=== PATIENT | female | born 1985 | race Caucasian/White ===

== ENCOUNTER 2018-03-13 19:33 | Inpatient (IN) | payer OTHER ==
[~2018-03-13] VITALS: Ht 167.6 cm; Wt 65.8 kg
--- NOTE | 2018-03-13 20:15 | NUR ---
PRE-ADMISSION NOTE VS BP-125/82 T- 97.5 P- 89 R-18 SpO2 AT 98% IN RA. PATIENT ALERT AND ORIENTED . AMBULATORY AND HAS STEADY GAIT. SPEECH CLEAR AND ABLE TO ANSWER QUESTIONS APPROPRIATELY. PATIENT HAS NO ALLERGY TO MEDICATION OR FOOD. NO HISTORY OF SEIZURE. PATIENT IS HERE FOR ALCOHOL AND CLONAZEPAM. WILL CONTINUE ADMISSION ON 3RD FLOOR.
[2018-03-13] MEDS ORDERED: CLONIDINE HCL 0.1 MG TABLET PO PRN (20:30)
[2018-03-13] MEDS ORDERED: ONDANSETRON ODT 4 MG TAB.RAPDIS SL PRN (20:30)
[2018-03-13] MEDS ORDERED: MAG HYDROX/AL HYDROX/SIMETH 30 ML LIQUID UDC PO PRN (20:30)
[2018-03-13] MEDS ORDERED: LORAZEPAM 1 MG TABLET PO PRN ×2 (20:30)
[2018-03-13] MEDS ORDERED: LORAZEPAM 2 MG/1 ML VIAL IM PRN (20:30)
[2018-03-13] MEDS ORDERED: ONDANSETRON 4 MG/2 ML VIAL IM PRN (20:30)
[2018-03-13] MEDS ORDERED: MIRALAX 17 GM POWD.PACK PO PRN (20:30)
[2018-03-13] MEDS ORDERED: IBUPROFEN 400 MG TABLET PO PRN (20:30)
[2018-03-13] MEDS ORDERED: MAGNESIUM HYDROXIDE 30 ML LIQUID UDC PO PRN (20:30)
[2018-03-13] MEDS ORDERED: THIAMINE HCL 200 MG/2 ML VIAL IM ONE (20:30)
[2018-03-13] MEDS ORDERED: LOPERAMIDE HCL 2 MG CAPSULE PO PRN ×2 (20:30)
[2018-03-13 20:42] LABS: *URINE HCG, QUAL NEGATIVE (NEGATIVE)
[2018-03-13 21:00] LABS: *AMPHETAMINE, URINE NEGATIVE (NEGATIVE); *BARBITURATE, URINE NEGATIVE (NEGATIVE); *COCCAINE, URINE NEGATIVE (NEGATIVE); *OPIATE, URINE NEGATIVE (NEGATIVE)
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
[2018-03-13 21:09] LABS: BASOPHILS % (AUTO) 0.4 % (0.0-2.0); EOSINOPHILS # (AUTO) 0.1 K/uL (0.0-0.7); EOSINOPHILS % (AUTO) 0.8 % (0.0-7.0); HEMATOCRIT 38.7 % (31.2-41.9); LYMPHOCYTES # (AUTO) 2.2 K/uL (20.0-40.0); LYMPHOCYTES % (AUTO) 32.4 % (20.5-51.5); MEAN CORPUSCULAR HEMOGLOBIN 29.8 uug (24.7-32.8); MEAN CORPUSCULAR HGB CONC 34 g/dL (32.3-35.6); MEAN CORPUSCULAR VOLUME 88.7 fL (75.5-95.3); MONOCYTES # (AUTO) 0.7 K/uL (2.0-10.0); MONOCYTES % (AUTO) 9.6 % (0.0-11.0); NEUTROPHILS # (AUTO) 3.9 K/uL (1.8-8.9); NEUTROPHILS % (AUTO) 56.8 % (38.5-71.5); PLATELET COUNT (AUTO) 201 K/uL (179-408); RED BLOOD CELL COUNT(AUTO) 4.36 MIL/uL (3.63-4.92); WHITE BLOOD COUNT (AUTO) 6.9 K/uL (3.8-11.8)
[2018-03-13 21:27] LABS: *CANNABINOID, URINE NEGATIVE (NEGATIVE); *PHENCYCLIDINE SCREEN,URINE NEGATIVE (NEGATIVE)
[2018-03-13] MEDS ORDERED: VENL150C58 PO (21:48)
[2018-03-13] MEDS ORDERED: LORAZEPAM 1 MG TABLET PO SCH (22:00)
[2018-03-13 22:04] LABS: ETHANOL < 3 MG/DL (0-0)
[2018-03-13] MEDS: diphenhydrAMINE 50 MG CAPSULE PO PRN (22:36)
--- NOTE | 2018-03-13 22:36 | NUR ---
PRN BENADRYL ADMINISTRATION PATIENT REQUESTS FOR SLEEP AID. WILL MONITOR FOR EFFECTIVENESS
[2018-03-13 22:58] LABS: ALANINE AMINOTRANSFERASE 26 U/L (14-59); ALKALINE PHOSPHATASE 106 U/L (50-136); AMYLASE 75 U/L (25-115); ASPARTATE AMINOTRANSFERASE 20 U/L (15-37); BILIRUBIN,TOTAL 0.2 mg/dL (0.2-1.0); CARBON DIOXIDE 24 mmol/L (21-32); CHLORIDE 106 mmol/L (98-107); CREATININE 0.8 mg/dL (0.6-1.3); GLUCOSE 109 mg/dL (74-106); POTASSIUM 4.7 mmol/L (3.5-5.1); TOTAL PROTEIN, SERUM 7.5 g/dL (6.4-8.2)
[2018-03-13 23:07] LABS: UREA NITROGEN, BLOOD 14 mg/dL (7-18)
--- NOTE | 2018-03-13 23:36 | NUR ---
DAMIAN ALEX RE-ASSESSMENT PATIENT ASLEEP AT THIS TIME. RESPIRATION EVEN AND UNLABORED. SAFETY MEASURES IN PLACE. CALL LIGHT IN REACH. WILL CONTINUE TO MONITOR.
[2018-03-14] VITALS: BP 123/67
--- NOTE | 2018-03-14 | NUR ---
CIWA DEFERRED PATIENT SLEEPING. RESPIRATION EVEN AND UNLABORED. SAFETY MEASURES IN PLACE. CALL LIGHT IN REACH. WILL CONTINUE TO MONITOR.
--- NOTE | 2018-03-14 04:00 | NUR ---
CIWA DEFERRED PATIENT SLEEPING. RESPIRATION EVEN AND UNLABORED. SAFETY MEASURES IN PLACE. CALL LIGHT IN REACH. WILL CONTINUE TO MONITOR.
--- NOTE | 2018-03-14 07:12 | NUR ---
END OF SHIFT NOTE PATIENT SLEPT 7 HOURS. FLUID INTAKE OF 1,591 ML. VOIDED X 3. NO BM. MONITORED PATIENT THROUGHOUT SHIFT. PATIENT COMPLIANT WITH MEDICATION, TOLERATED WELL AND NO ADVERSE REACTION. PATIENT WAS GIVEN ONE TIME ATIVAN ORDERED. VITAMIN B1 IM GIVEN ON LEFT DELTOID. PATIENT REQUESTED FOR SLEEP AID, PRN BENADRYL GIVEN. LAST CIWA 7. ON FALL/SEIZURE PRECAUTION. SAFETY MEASURES IN PLACE. CALL LIGHT IN REACH. WILL CONTINUE TO MONITOR.
--- NOTE | 2018-03-14 07:15 | NUR ---
Start of Shift Music Therapist received report on 32 year old female admitted to [facility] on 03/13/18 for medical management of ETOH and Benzodiazepine withdrawals. Pt endorses NKA, full code and regular diet. Denies any medical history with a PPH of anxiety and depression. No known seizure history. Currently started on Ativan taper, tolerating well, last CIWA 7, per NOC report. Pt was administered PRN Benadryl(insomnia) on NOC, per report. Music Therapist encounters pt in pts room, pt resting with eyes closed, rise and fall of chest noted, with even and unlabored respirations. Bed in low position, wheels locked with side rails up x2. Will continue to monitor, support and encourage according to plan of care.
[2018-03-14 08:12] VITALS: BP 115/80
[2018-03-14] MEDS ORDERED: TUBERCULIN,PURIF.PROT.DERIV. 5 TU/0.1 ML TEST ID ONE (09:00)
[2018-03-14] MEDS: MULTIVITAMINS,THERAPEUTIC TABLET PO SCH (09:26)
[2018-03-14] MEDS: FOLIC ACID 1 MG TABLET PO SCH (09:26)
[2018-03-14] MEDS: LORAZEPAM 1 MG TABLET PO SCH ×3 (09:26→20:24)
[2018-03-14] MEDS: THIAMINE HCL 100 MG TABLET PO SCH (09:26)
[2018-03-14] MEDS: VENLAFAXINE XR 150 MG CAP.SR.24H PO SCH (12:10)
[2018-03-14 12:44] VITALS: BP 111/81
[2018-03-14 17:03] VITALS: BP 116/78
--- NOTE | 2018-03-14 19:05 | NUR ---
End of Shift Artist'S Model provided report on 32 year old female admitted to [facility] on 03/13/18 for medical management of ETOH and Benzodiazepine withdrawals. Pt endorses NKA, full code and regular diet. Denies any medical history with a PPH of anxiety and depression. No known seizure history. Currently started on Ativan taper, tolerating well, last CIWA 6. No PRN medication administered. Pt is A/O x4 and makes her needs known. Clear of thought and speech with linear thought process. Flat affect with an anxious mood. Calm and cooperative. Pt participated in groups and is medication compliant. Bed in low position, wheels locked with side rails up x2.
[2018-03-14 20:00] VITALS: BP 120/78
--- NOTE | 2018-03-14 20:00 | NUR ---
START OF SHIFT NOTE RECEIVED REPORT FROM DAY SHIFT NURSE. PATIENT IS A 32 YEAR OLD FEMALE ADMITTED FOR ETOH/BENZO WITHDRAWAL. PATIENT STARTED ON ATIVAN TAPER. PATIENT COMPLIANT WITH MEDICATION AND TREATMENT PLAN. PATIENT DID NOT REQUIRE PRN MEDICATION. LAST CIWA 6. RECEIVED PATIENT IN THE ROOM. ALERT AND ORIENTED X 4. RESPIRATION EVEN AND UNLABORED. PATIENT PRESENTED WITH FLAT AFFECT, SAD, DEPRESSED, ANXIOUS, RESTLESS LEGS, SWEATING, MILD HEADACHE, VERY MILD PINS AND NEEDLES SENSATIONS. SAFETY MEASURES IN PLACE. CALL LIGHT IN REACH. WILL CONTINUE TO MONITOR
[2018-03-14] MEDS: diphenhydrAMINE 50 MG CAPSULE PO PRN (20:24)
--- NOTE | 2018-03-14 20:24 | NUR ---
PRN BENADRYL ADMINISTRATION PATIENT REQUESTS FOR SLEEP AID. WILL MONITOR FOR EFFECTIVENESS
--- NOTE | 2018-03-14 23:00 | NUR ---
PRN BENADRYL RE-ASSESSMENT PATIENT SLEEPING. RESPIRATION EVEN AND UNLABORED. SAFETY MEASURES IN PLACE. CALL LIGHT IN REACH WILL CONTINUE TO MONITOR
[2018-03-15] VITALS: BP 102/68
--- NOTE | 2018-03-15 | NUR ---
CIWA DEFERRED PATIENT SLEEPING. RESPIRATION EVEN AND UNLABORED. SAFETY MEASURES IN PLACE. VS REFUSED. CALL LIGHT IN REACH WILL CONTINUE TO MONITOR
[2018-03-15 04:00] VITALS: BP 98/55
--- NOTE | 2018-03-15 04:00 | NUR ---
CIWA DEFERRED PATIENT SLEEPING. RESPIRATION EVEN AND UNLABORED. SAFETY MEASURES IN PLACE. VS REFUSED. CALL LIGHT IN REACH WILL CONTINUE TO MONITOR
--- NOTE | 2018-03-15 07:10 | NUR ---
END OF SHIFT NOTE PATIENT SLEPT 7 HOURS. FLUID INTAKE M1,500 ML. VOIDED X 2. NO BM. MONITORED PATIENT THROUGHOUT SHIFT. SCHEDULED MEDICATION AND ATIVAN TAPER GIVEN ORDERED, TOLERATED WELL AND NO ADVERSE REACTION. PATIENT WAS SAD, DEPRESSED, ANXIOUS,C/O RESTLESS LEGS, SWEATING, MILD HEADACHE, VERY MILD PINS AND NEEDLES SENSATIONS BEGINNING OF SHIFT. PATIENT COMPLIANT WITH MEDICATION AND TEATMENT PLAN. PATIENT WAS GIVEN PRN BENADRYL FOR SLEEP. SAFETY MEASURES IN PLACE. CALL LIGHT IN REACH. WILL CONTINUE TO MONITOR . LAST CIWA 7.
--- NOTE | 2018-03-15 07:15 | NUR ---
Start of Shift Strap Machine Operator Automatic received report on 32 year old female admitted to [facility] on 03/13/18 for medical management of ETOH and Benzodiazepine withdrawals. Pt endorses NKA, full code and regular diet. Denies any medical history with a PPH of anxiety and depression. No known seizure history. Currently started on Ativan taper, tolerating well, last CIWA 7, per NOC report. Pt was administered PRN Benadryl(insomnia) on NOC, per report. Strap Machine Operator Automatic encounters pt in pts room, pt resting. Pt is A/O x4 and makes needs known. Calm and cooperative. Pt is anxious about making phone call to and FMLA paperwork. Bed in low position, wheels locked with side rails up x2. Will continue to monitor, support and encourage according to plan of care.
[2018-03-15 08:42] VITALS: BP 129/49
[2018-03-15] MEDS: MULTIVITAMINS,THERAPEUTIC TABLET PO SCH (08:48)
[2018-03-15] MEDS: THIAMINE HCL 100 MG TABLET PO SCH (08:48)
[2018-03-15] MEDS: VENLAFAXINE XR 150 MG CAP.SR.24H PO SCH (08:49)
[2018-03-15] MEDS: LORAZEPAM 1 MG TABLET PO SCH ×4 (08:49→20:18)
[2018-03-15] MEDS: FOLIC ACID 1 MG TABLET PO SCH (08:49)
--- NOTE | 2018-03-15 10:52 | NUR ---
Client was prompted to attend groups daily at 11:00am and at 3:30pm. Client stated she would attend the groups and is planning on attending the 11:00 am group today.
[2018-03-15 12:48] VITALS: BP 124/78
[2018-03-15 13:09] LABS: HEPATITIS B SURFACE AG Negative (Negative)
[2018-03-15 16:30] VITALS: BP 115/73
--- NOTE | 2018-03-15 18:29 | NUR ---
Motrin 400mg po prn given for "menstrual cramps."
--- NOTE | 2018-03-15 19:12 | NUR ---
End of Shift Veterinary Bacteriologist provided report on 32 year old female admitted to [facility] on 03/13/18 for medical management of ETOH and Benzodiazepine withdrawals. Pt endorses NKA, full code and regular diet. Denies any medical history with a PPH of anxiety and depression. No known seizure history. Currently started on Ativan taper, tolerating well, last CIWA 7, per NOC report. Pt was administered PRN Benadryl(insomnia) on NOC, per report. Pt has been isolative to self and withdrawn to room. Pt is guarded with staff, attends groups and participates. A/O x4 and makes needs known. Clear of thought and speech with a linear thought process. Bed in low position, wheels locked with side rails up x2.
--- NOTE | 2018-03-15 19:12 | NUR ---
START OF SHIFT NOTE: Patient is a 32 year old female continues 4 day Ativan Taper for Benzodiazepines/Clonazepam and Alcohol/Red and White Wine withdrawal. The patient reports NKA and Regular Diet, is on Full Code, is on Fall an seizures Precautions. She is denies withdrawal-Induced Seizures History. Upon endorsement, patient is in his room, lying in the bed, and watching TV. Patient is alert and oriented x4. Patient appears sad, worry with flat effect, and c/o increasing anxiety, agitation, nervousness, abdominal cramps, tremors, sweating, generalized body aches, myalgia, fatigue, and restlessness. Last CIWA is 5 per day shift nurse. Patient received PRN Motrin 400 mg PO for "menstrual cramps" at 1828 per day shift nurse report. Patient remains compliant with treatment, medications, and diet regime. Encouraged to fluid intake as tolerated. Encourage to attended groups activities. All needs met. Safety measures in the place: Call light within reach, bed in the lowest position and locked, padded rails up x2. Patient endorsed to day shift nurse.
[2018-03-15 20:00] VITALS: BP 103/66
[2018-03-15] MEDS: diphenhydrAMINE 50 MG CAPSULE PO PRN (20:32)
[2018-03-15] MEDS: ACETAMINOPHEN 325 MG TABLET PO PRN (20:32)
--- NOTE | 2018-03-15 20:32 | NUR ---
PRN BENADRYL 50 MG 1 CAPSULE PO AND PRN TYLENOL 650 MG PO ADMINISTRATION. Patient c/o insomnia and "menstrual cramps - 8/10". PRN Benadryl 50 mg PO administrated for insomnia, and PRN Tylenol 650 mg PO administrated for "menstrual cramps - 8/10" with full glass of water as ordered. All needs met. Safe and calm environment with minimized noises was provided. Safety measures on place. Call light within reach, bed in lowest position locked, padded rails up bilaterally. Will continue to monitor closely.
--- NOTE | 2018-03-15 21:32 | NUR ---
RE-ASSESSMENT Patient is sleeping. RR 17. Respirations even and unlabored. PRN Benadryl 50 mg PO administrated for insomnia, and PRN Tylenol 650 mg PO administrated for "menstrual cramps - 06/30" were effective. All needs met. Safe and calm environment with minimized noises was provided. Safety measures on place. Call light within reach, bed in lowest position locked, padded rails up bilaterally. Will continue to monitor closely.
[2018-03-15] MEDS: HYDROXYZINE PAMOATE 25 MG CAPSULE PO PRN (22:07)
--- NOTE | 2018-03-15 22:07 | NUR ---
PRN VISTARIL 25MG 1 CAP PO ADMINISTRATION Patient c/o increased anxiety, and asked aid. PRN Vistaril 25 mg for anxiety administrated with full glass of water as ordered. Patient tolerated well. All needs met. Safe and calm environment with minimized noises was provided. Safety measures on place. Call light within reach, bed locked in lowest position, padded rails up bilaterally. Will continue to monitor closely.
--- NOTE | 2018-03-15 23:07 | NUR ---
RE-ASSESSMENT Patient is sleeping. Respirations even and unlabored. RR 16. PRN Vistaril 25 mg administrated for anxiety was effective. All needs met. Safe and calm environment with minimized noises was provided. Safety measures on place. Call light within reach, bed locked in lowest position, padded rails up bilaterally. Will continue to monitor closely.
[2018-03-16] VITALS: BP 106/62
[2018-03-16 04:00] VITALS: BP 102/59
--- NOTE | 2018-03-16 07:09 | NUR ---
END OF SHIFT NOTE: Presented patient is a 32 year old female continues 4 day Ativan for Benzodiazepines/Clonazepam and Alcohol/Red and White Wine withdrawal. Patient is alert and oriented x4. Patient is fully ambulatory with steady gate. Patient appears anxious, agitated, nervous, easy overwhelmed, worry, and sad. Patient c/o "sleep difficulty, and irritability". Patient noted disheveled, unkempt, and uncombed. Educated in safety and hygiene care. Encouraged to independently perform hygiene care. Patient verbalized understanding. CIWA=10 at 2000, CIWA= 6 at 0000. Latest CIWA= 8 at 0400. Patient presented with withdrawal symptoms such as anxiety, moderately fidgety and restless, agitation, c/o nervousness, abdominal cramps, sweating, tremors, body aches, and restlessness. PRN Benadryl 50 mg PO administrated for insomnia at 2031, PRN Tylenol 650 mg PO administrated for "menstrual cramps - 8/10" at 2031, and PRN Vistaril 25 mg PO for anxiety administrated for anxiety at 2206, were effective. Patient remains compliant with treatment, medications and diet regime. Encouraged to increase oral fluids as tolerated. Encourage to attended groups activities. Calm and safety environment with minimized noises was provided. Patient slept 8 hours, intake 2,000 ml, voided x2, stool x1. All needs met. Safe and calm environment with minimized noises was provided. Safety measures in the place: Call light within reach, bed in the lowest position and locked, padded rails up x2. Patient endorsed to day shift nurse.
--- NOTE | 2018-03-16 07:45 | NUR ---
START OF SHIFT Endorse rcvd from ongoing nurse, client is sitting in bed, he avoids eye contact, a/o x 4, she presents with depressed mood, flat affect, tremors felt not observed, and moist skin. she reports decrease appetite, restless legs, feelings of despair, and fatigue. Encourage client to take a shower and to get out of room to increase her activity, she said, "I'll try." Client denies any SI/HI. Encourage client to attend group therapy for skills to maintain sober. Encourage client to increase PO fluid as tolerated to maintain rehydration and facilitate detox. PRN Tylenol 650mg PO for pain, Vistaril 25mg PO for anxiety, Benadryl 50mg PO for inability to sleep, client slept 6 hrs. Last CIWA 8 @ 0400. Client admitted for medically supervised withdrawal from alcohol and clonazepam. Third of 4 day Ativan taper. Call light within reach. Seizure precautions rendered.
[2018-03-16] MEDS: THIAMINE HCL 100 MG TABLET PO SCH (08:35)
[2018-03-16] MEDS: LORAZEPAM 1 MG TABLET PO SCH ×3 (08:35→20:24)
[2018-03-16] MEDS: MULTIVITAMINS,THERAPEUTIC TABLET PO SCH (08:35)
[2018-03-16] MEDS: VENLAFAXINE XR 150 MG CAP.SR.24H PO SCH (08:35)
[2018-03-16] MEDS: FOLIC ACID 1 MG TABLET PO SCH (08:35)
[2018-03-16 08:38] VITALS: BP 107/65
[2018-03-16 12:00] VITALS: BP 110/78
[2018-03-16] MEDS ORDERED: IBUP-1953 PO (12:42)
[2018-03-16] MEDS ORDERED: HYDR-3895 PO (12:42)
[2018-03-16] MEDS ORDERED: DIPH50CA37 PO (12:42)
[2018-03-16 16:46] VITALS: BP 115/71
--- NOTE | 2018-03-16 19:16 | NUR ---
START OF SHIFT NOTE: Endorsed patient is a 32 year old female admitted for Alcohol/"Red and White Wine" withdrawal. She is on ordered 4 day Ativan taper. Patent reports NKA, is on Full Code, Regular Diet, is on Fall and Seizures Precautions. Patient denies History of withdrawal-induced seizures. Patient denies SI/HI. Patient is alert and oriented x4 with stable gait. She is appears sad and worry with poor eye contact, and flat affect. Patient 's c/o feelings of easily overwhelmed, increased anxiety, and irritability. She expressed her feelings as," I am easily irritated, and have restlessness and fatigue". Emotional support and reassuring provided. Encouraged expressed his feelings. Last CIWA=11 @1600 per outgoing day shift nurse report: Patient presented with moderate withdrawal symptoms of anxiety, agitation, nervousness, tremors, sweating, itching, tachycardia, and headache. No PRN Medications administrated per day shift nurse report. Patient remains compliant with treatment, medications and diet regime. Encouraged to fluid intake as tolerated. Encouraged to attended groups activities. All needs met. Safety measures in place: Call light within reach, bed is locked in lowest position, padded bed rails up bilaterally. Patient endorsed by day shift nurse. Report received. Will continue to monitor closely.
--- NOTE | 2018-03-16 19:16 | NUR ---
END OF SHIFT Endorse client to incoming nurse, client is in room, a/o x 4, she continues to avoid eye contact, depressed mood, flat affect, tremors felt not observed, and moist skin, decrease appetite, restless legs, feelings of despair, and fatigue. Last CIWA 11@ 1600. Client was not compliant with group therapy d/t withdrawal symptoms. Adequate PO fluid intake 1910mL, void x 3, stool x 1. Client consumes 50-75% of meals. Call light within reach.
[2018-03-16 20:08] VITALS: BP 114/73
[2018-03-16] MEDS: diphenhydrAMINE 50 MG CAPSULE PO PRN (20:25)
--- NOTE | 2018-03-16 20:25 | NUR ---
PRN BENADRYL 50 MG 1 CAP PO ADMINISTRATION Patient c/o insomnia and asked aid. Benadryl 50 mg PO administrated PRN with full glass of water as ordered. Patient tolerated well. All needs met. Safe and calm environment with minimized noises was provided. Safety measures on place. Call light within reach, bed in lowest position locked, padded rails up bilaterally. Will continue to monitor closely.
[2018-03-16] MEDS: ACETAMINOPHEN 325 MG TABLET PO PRN (21:10)
--- NOTE | 2018-03-16 21:10 | NUR ---
PRN TYLENOL 650 MG PO ADMINISTRATION. Patient c/o "menstrual cramps - 06/30". Tylenol 650 mg PO administrated PRN with full glass of water as ordered. All needs met. Safe and calm environment with minimized noises was provided. Safety measures on place. Call light within reach, bed in lowest position locked, padded rails up bilaterally. Will continue to monitor closely.
--- NOTE | 2018-03-16 21:25 | NUR ---
RE-ASSESSMENT Patient is sleeping. RR 16. Respirations even and unlabored. Benadryl 50 mg PO administrated PRN for insomnia at 2024 was effective. Safe and calm environment with minimized noises was provided. All needs met. Safety measures on place. Call light within reach, bed in lowest position locked, padded rails up bilaterally. Will continue to monitor closely.
--- NOTE | 2018-03-16 22:10 | NUR ---
RE-ASSESSMENT Patient is sleeping. RR 16. Respirations even and unlabored. Tylenol 650 mg PO administrated PRN for "menstrual cramps - 06/30" was effective. All needs met. Safe and calm environment with minimized noises was provided. Safety measures on place. Call light within reach, bed in lowest position locked, padded rails up bilaterally. Will continue to monitor closely.
[2018-03-17] VITALS: BP 100/62
[2018-03-17 04:00] VITALS: BP 109/67
--- NOTE | 2018-03-17 06:54 | NUR ---
END OF SHIFT NOTE: Patient is a 32 year old female continues 4 Day Ativan Taper ordered for Alcohol/"Red and White Wine" withdrawal. Withdrawal symptoms closely monitored. Patient denies history of withdrawal-induced seizures. Patient denies SI/HI. She is alert and oriented x4. Patient appears anxious, fearful, depressed, sad, worry with flat affect. Encouraged to expresses her feelings. Education provided to use of Relaxation Techniques: Deep breathing exercises, guided imagery, and visualization. Initial CIWA=10 at 2000, CIWA=6 at 0000. The most recent CIWA=7 at 0400: Patient presented with moderate withdrawal symptoms of anxiety, agitation, nervousness, abdominal cramps, tremors, sweating,nasal congestion, fatigue, and restlessness. VSWNL. Respirations are even and unlabored. Patient denies chest pain and cough. Skin is intact, warm and dry to touch. Benadryl 50 mg PO administrated PRN for insomnia at 2024, and Tylenol 650 mg PO administrated PRN for "menstrual cramps - 8/10" at 2109 were effective. Patient remains compliant with treatment, medications, and diet regime. Calm and safety environment with minimized noises was provided. Patient slept 9 hours, intake 1,500 ml, voided x3. Call light within reach, bed is locked in lowest position, padded bed rails up bilaterally. Patient endorsed to day shift nurse.
--- NOTE | 2018-03-17 07:45 | NUR ---
START OF SHIFT Rcvd endorse from ongoing nurse, client is in bed, a/o x 4, she presents with depresses mood, flat affect, fine tremors, and clammy skin. Client reports headache, anxiety, irritability, chills, decreased appetite, restless legs, a sense of panic and fatigue due to inability to sleep. Encourage client to increase PO fluid for hydration and to facilitate detox. Encourage client to attend group therapy to learn skills to maintain sober. Client is admitted to [facility] for medically supervision of alcohol and clonazepam withdrawal, last CIWA 7 @ 0400. Client is on last of 4 day Ativan taper. Seizure precautions rendered. Side rails x 2 up/padded. Call light within reach.
[2018-03-17 08:01] VITALS: BP 107/70
[2018-03-17] MEDS: FOLIC ACID 1 MG TABLET PO SCH (08:19)
[2018-03-17] MEDS: THIAMINE HCL 100 MG TABLET PO SCH (08:19)
[2018-03-17] MEDS: MULTIVITAMINS,THERAPEUTIC TABLET PO SCH (08:19)
[2018-03-17] MEDS: VENLAFAXINE XR 150 MG CAP.SR.24H PO SCH (08:19)
[2018-03-17] MEDS ORDERED: LORAZEPAM 1 MG TABLET PO SCH ×2 (09:00)
[2018-03-17] MEDS: HYDROXYZINE PAMOATE 25 MG CAPSULE PO PRN ×3 (09:37→23:12)
--- NOTE | 2018-03-17 09:37 | NUR ---
PRN Vistaril 25mg PO administered for anxiety. Call light within reach. will continue to monitor.
--- NOTE | 2018-03-17 10:37 | NUR ---
Reassess PRN Vistaril 25mg, client reports feeling less anxious. Call light within reach.
[2018-03-17 12:00] VITALS: BP 108/72
--- NOTE | 2018-03-17 16:35 | NUR ---
PRN Vistaril 25mg PO administered for anxiety. Call light within reach. will continue to monitor.
[2018-03-17 16:59] VITALS: BP 129/78
--- NOTE | 2018-03-17 17:35 | NUR ---
Reassess PRN Vistaril 25mg, client reports feeling less anxious. Call light within reach.
--- NOTE | 2018-03-17 18:30 | NUR ---
PRN Clonidine 0.1mg PO administered for BP 138/91. Will continue to monitor. Call light within reach.
--- NOTE | 2018-03-17 19:16 | NUR ---
START OF SHIFT NOTE: Endorsed patient 32 year old female completed ordered 4 Day Ativan Tape for ETOH/"Red and White Wine" withdrawal. Patient is alert and oriented x4. She is assessed in her room. The patient resting in the bed. Patient is alert and oriented x4. Patient appears worry with poor eyes contact , and c/o " feelings of sadness". Emotional support provided, and patient 's reassuring. Patient denied SI/HI. The most recent CIWA=5 at 1700: Patient presented with anxiety, agitation, nervousness, tremors, sweating, restlessness, fatigue, and restlessness. Encouraged to attend group activities. Encouraged to increasing oral fluids. PRN Vistaril 25 mg PO x2 administrated for anxiety at 0937 and 1635, and PRN Clonidine 0.1 mg PO administrated for BP 138/91 were effective, and BP decreased to 128/77, per day shift nurse report. Patient remains compliant with treatment, medications, and diet regime per day shift nurse report. Patient is scheduled for discharging tomorrow, 03/18/2018 at 0930. All safety measures in the place: Call light within reach, bed locked and in the lowest position, padded rails up x 2. Patient endorsed by day shift nurse, report received. Will continue to monitor closely.
--- NOTE | 2018-03-17 19:16 | NUR ---
END OF SHIFT Endorse client to incoming nurse, client is in room, a/o x 4, she continues to present with depressed mood, flat affect, decrease appetite, restless legs, feelings of despair, and fatigue. Client is schedule for discharge to [facility] to continue her treatment. Last CIWA 5@ 1600. PRN Vistaril 25mg PO administered for anxiety x 2, PRN Clonidine for increased BP 138/91, decreased BP 128/77. Client was compliant with 1/3 of group therapy. Adequate PO fluid intake 1750mL, void x 4, stool x 1. Client consumes 50% of meals. Call light within reach.
--- NOTE | 2018-03-17 19:30 | NUR ---
RE-ASSESSMENT BP 122/71. Clonidine 0.1 mg PO administrated PRN for high BP by day shift nurse at 1830 was effective. All needs met. Safe and calm environment with minimized noises was provided. Safety measures on place. Call light within reach, bed locked in lowest position, padded rails up bilaterally. Will continue to monitor closely.
[2018-03-17 20:00] VITALS: BP 109/67
[2018-03-17] MEDS: diphenhydrAMINE 50 MG CAPSULE PO PRN (20:50)
--- NOTE | 2018-03-17 20:50 | NUR ---
PRN BENADRYL 50 MG 1 CAP PO ADMINISTRATION Benadryl 50 mg PO administrated PRN for insomnia with full glass of water as ordered. Patient tolerated well. All needs met. Safe and calm environment with minimized noises was provided. Safety measures on place. Call light within reach, bed in lowest position locked, padded rails up bilaterally. Will continue to monitor closely.
--- NOTE | 2018-03-17 21:50 | NUR ---
RE-ASSESSMENT Patient is sleeping. RR 15. Respirations even and unlabored. Benadryl 50 mg PO administrated PRN for insomnia at 2049 was effective. Safe and calm environment with minimized noises was provided. All needs met. Safety measures on place. Call light within reach, bed in lowest position locked, padded rails up bilaterally. Will continue to monitor closely.
--- NOTE | 2018-03-17 23:12 | NUR ---
PRN VISTARIL 25 MG 1 CAPSULE PO ADMINISTRATION Patient c/o increased anxiety, and asked aid. PRN Vistaril 25 mg for anxiety administrated with full glass of water as ordered. Patient tolerated well. All needs met. Safe and calm environment with minimized noises was provided. Safety measures on place. Call light within reach, bed locked in lowest position, padded rails up bilaterally. Will continue to monitor closely.
--- NOTE | 2018-03-18 | NUR ---
VS REFUSED, CIWA DEFERRED VS refused, CIWA deferred at 0000, d/t pt sleeping, to assess while pt is awake as ordered. All needs met. Safe and calm environment with minimized noises was provided. Safety measures on place. Call light within reach, bed in lowest position locked, padded rails up bilaterally. Will continue to monitor closely.
--- NOTE | 2018-03-18 00:12 | NUR ---
RE-ASSESSMENT Patient is sleeping. Respirations even and unlabored. RR 14. PRN Vistaril 25 mg administrated for anxiety was effective. All needs met. Safe and calm environment with minimized noises was provided. Safety measures on place. Call light within reach, bed locked in lowest position, padded rails up bilaterally. Will continue to monitor closely.
[2018-03-18 04:00] VITALS: BP 94/58
--- NOTE | 2018-03-18 07:05 | NUR ---
END OF SHIFT NOTE: 32 year old female presented for Alcohol/"Red and White Wine" withdrawal, completed 4 Day Ativan Taper. Patient scheduled for discharging today. She is alert and oriented x4. Patient appears anxious, worry with labile affect. Education provided to use of Relaxation Techniques: Deep breathing exercises, guided imagery, and visualization. Initial CIWA=7 at 1999. VS refused, CIWA deferred @0000 d/t patient sleeping, to assess while patient is awake as ordered. Last CIWA=5 at 399. The most recent CIWA=7 at 399: Patient presented with mild withdrawal symptoms of anxiety, agitation, nervousness, tremors, sweating, fatigue, and restlessness. Respirations are even and unlabored. Skin is intact, warm and dry to touch. Benadryl 50 mg PO administrated PRN for insomnia at 2049, and Vistaril 25 mg PO administrated PRN for anxiety were effective. Patient remains compliant with treatment, medications, and diet regime. Calm and safety environment with minimized noises was provided. Patient slept 6 hours, intake 1,296 ml, voided x1. Call light within reach, bed is locked in lowest position, padded bed rails up bilaterally. Patient endorsed to day shift nurse.
--- NOTE | 2018-03-18 07:35 | NUR ---
Start of Shift Notes: Received patient in her room. Awake, alert and oriented x 4. Verbally responsive. She is seen getting up from bed, getting ready to shower. Denies S/I or H/I or AV hallucinations. She appears anxious and states that its due to the discharge process. Education and reassurance was provided. Patient is a 32 year old female admitted for ETOH withdrawal who completed her 4-day Ativan taper as ordered and will be discharging to [facility] today. No PRNs given during the night. Slept for 8 hours. Last CIWA 8. Will continue to monitor.
[2018-03-18 08:00] VITALS: BP 135/94
[2018-03-18] MEDS: VENLAFAXINE XR 150 MG CAP.SR.24H PO SCH (08:09)
[2018-03-18] MEDS: FOLIC ACID 1 MG TABLET PO SCH (08:09)
[2018-03-18] MEDS: THIAMINE HCL 100 MG TABLET PO SCH (08:09)
[2018-03-18] MEDS: MULTIVITAMINS,THERAPEUTIC TABLET PO SCH (08:09)
[2018-03-18] MEDS: HYDROXYZINE PAMOATE 25 MG CAPSULE PO PRN (08:09)
--- NOTE | 2018-03-18 08:09 | NUR ---
Vistaril 25 mg PO given: CORRIEWA 4, due to anxiety. Patient requested for Vistaril. Non-pharmacological interventions provided but ineffective. Medicated patient with Vistaril 25 mg PO as ordered. Will monitor for effectiveness.
--- NOTE | 2018-03-18 08:50 | NUR ---
Discharge/Re-assessment: Vistaril CAREN 4, patient states that PRN Vistaril was effective in relieving her anxiety. VS stable. Patient education provided regarding the discharge process and prescription medication. All necessary discharge paperwork signed and placed inside blue and black duffel bag. All clothing, medications and valuables were returned to the patient. Patient was picked by [employer] to be transported to [facility]. Patient left in stable condition.
== END 2018-03-18 08:50 | disposition other institution (70) | DRG 895 ==
LOC: SRC 19:33
PROVIDERS: ADMIT Internal Medicine; ATTEND Internal Medicine
PROC: HZ2ZZZZ Detoxification Services for Substance Abuse Treatment (ICD-10-PCS; principal; 2018-03-13)
PROC: HZ41ZZZ Group Counseling for Substance Abuse Treatment, Behavioral (ICD-10-PCS; 2018-03-14)
PROC: HZ31ZZZ Individual Counseling for Substance Abuse Treatment, Behavioral (ICD-10-PCS; 2018-03-15)
DX: F10.230 Alcohol dependence with withdrawal, uncomplicated (principal); F33.2 Major depressive disorder, recurrent severe without psychotic features; F13.230 Sedative, hypnotic or anxiolytic dependence with withdrawal, uncomplicated; Y90.0 Blood alcohol level of less than 20 mg/100 ml; F41.9 Anxiety disorder, unspecified; F50.9 Eating disorder, unspecified; Z81.1 Family history of alcohol abuse and dependence; Z91.89 Other specified personal risk factors, not elsewhere classified; Z83.3 Family history of diabetes mellitus; Z82.61 Family history of arthritis
CPT/HCPCS: 36415; 70030-TC; 80307; 83735; 84703; 85025; 86592; 86705; 86803; 87340; 87806; A4663; G0480; J3411; Q0163